=== PATIENT | male | born 1960 | race Caucasian/White ===

== ENCOUNTER 2022-11-17 21:26 | Emergency (ER) | payer BC, SELFPAY ==
[2022-11-17 21:43] VITALS: BP 152/75; PULSE 75; RESP 18; TEMP 36.2; O2SAT 98; BMI 30.3
--- NOTE | 2022-11-17 22:53 | ED.GENADULT ---
HPI - General Adult General Chief complaint: General Medical Stated complaint: Rabis bat exposure vaccine treatment Time Seen by Provider: 11/17/22 22:40 Source: patient, RN notes reviewed and old records reviewed Mode of arrival: ambulatory Limitations: no limitations History of Present Illness HPI narrative: 62-year-old male presents for evaluation of ?I need a rabies vaccine. ? Patient has a cat who ended up capturing a bat At the cap brought the back into the house Monday The patient tolerated the bat with a bucket and then ended up bring it for rabies testing The bat tested positive for rabies and therefore it was recommended to the patient that he get the rabies vaccine He did not get bit or commented direct contact with the bat as far as he knows He has no signs or symptoms at this time Related Data Allergies Allergy/AdvReac Type Severity Reaction Status Date / Time No Known Allergies Allergy Verified 11/17/22 21:42 Review of Systems Constitutional: Constitutional: Denies chills and Denies fever(s) Respiratory: Respiratory: Denies cough PMFSH Social History Social History Advance Directives: No Advance Directives Information Provided: No Physical Exam ED Vital Signs: Vital Signs - 24 hr 11/17/22 21:43 Temperature 97.1 F Pulse Rate 75 Respiratory Rate 18 Blood Pressure 152/75 H Pulse Oximetry 98 Oxygen Delivery Method Room Air BMI result Body Mass Index 30.3 Const General: healthy appearing, comfortable, no acute distress, alert and awake Nutritional Appearance: well nourished Orientation/consciousness: patient oriented x3 HENMT Head: Yes normocephalic and Yes atraumatic Eyes Eyelids: Yes eyelids normal Conjunctivae: conjunctivae normal Sclerae: sclerae normal Corneas: corneas normal Pupils: Equal, round and reactive pupils present EOM: EOMs intact bilaterally Neck Neck: Yes full ROM Resp Effort & Inspection: normal respiratory effort, able to speak in complete sentences and not labored Neuro General: patient oriented x3 Cranial nerves: Yes Equal, round and reactive pupils present and Yes Bilaterally intact EOM present Cognition (Neuro): normal cognition Extrem Other: Moving all extremities well without any obvious deformities Medical Decision Making Medical Decision Making MDM Narrative: 62-year-old male presents for evaluation of a rabies exposure. The patient and did not knowingly comment to direct contact with the back, however given that the bat tested positive for rabies the patient will be administered the rabies vaccine Differential Diagnosis Differential Diagnoses: The differential diagnosis associated with the presentation includes Rabies exposure Rabies vaccine Well visit Discharge Plan Discharge Clinical Impression: Exposure to rabies Patient Disposition: Home, Self-Care Instructions: Rabies Vaccine (By injection), Rabies (ED) Additional Instructions: He received both the rabies vaccine and rabies immunoglobulin today. You need to return in 3 days, 7 days, and 14 days for the rabies vaccine alone
[2022-11-17] MEDS: Rabies Vaccine, Human Diploid (Imovax) 1 ML VIAL IM (23:31)
[2022-11-17] MEDS: Rabies Immune Globulin/PF 900 UNIT/3 ML VIAL 1972 UNIT IM (23:32)
== END 2022-11-17 23:44 | disposition home or self-care (01) ==
PROVIDERS: Emergency Provider Internal Medicine; PCP Family Medicine
DX: Z20.3 Contact with and (suspected) exposure to rabies (principal)
CPT/HCPCS: 90375; 90471; 90675; 96372; 99282; 99284

== ENCOUNTER 2022-11-20 10:05 | Outpatient (REF) | payer BC, SELFPAY | END 2022-11-20 10:06 | disposition home or self-care (01) | LOC: HO.MDS 10:05 | PROVIDERS: Visit Provider Physician Assistant | DX: Z20.3 Contact with and (suspected) exposure to rabies (principal) | CPT/HCPCS: 90471; 90675 ==

== ENCOUNTER 2022-11-24 06:59 | Outpatient (REF) | payer BC, SELFPAY | END 2022-11-24 07:00 | disposition home or self-care (01) | LOC: HO.MDS 06:59 | PROVIDERS: Visit Provider Physician Assistant | DX: Z20.3 Contact with and (suspected) exposure to rabies (principal) | CPT/HCPCS: 90471; 90675 ==

== ENCOUNTER 2022-12-01 06:53 | Outpatient (REF) | payer BC, SELFPAY | END 2022-12-01 06:54 | disposition home or self-care (01) | LOC: HO.MDS 06:53 | PROVIDERS: Visit Provider Physician Assistant | DX: Z20.3 Contact with and (suspected) exposure to rabies (principal) | CPT/HCPCS: 90471; 90675 ==